=== PATIENT | male | born 1960 | race African-American/Black ===

== ENCOUNTER 2016-03-27 21:37 | Emergency (ER) | payer SELFPAY ==
[~2016-03-27 21:37] MED LIST: PRED-220 PO; SULF1TAB24 PO; TRIA15OI TP
[2016-03-27 23:18] VITALS: BP 117/70
[2016-03-28] MEDS ORDERED: HYDR-971 PO (00:26)
--- NOTE | 2016-03-28 00:27 | PHYS DOC ---
Past Medical History Past Medical History: Other Additional Past Medical Histor: "KIDNEY PROBLEM", EMPHYSEMA Past Surgical History: Other Additional Past Surgical Histo: RIGHT LOWER LOBECTOMY. Smoking: Less than 1pk/day Alcohol Use: Occasionally Drug Use: None Adult General Chief Complaint Chief Complaint: HAND PROBLEM HPI HPI Patient is a 55 year old male who presents with right hand pain after falling 11 days ago. He reports that his hip gave out on him, causing his fall. This apparently happens occasionally. He usually uses a cane for assistance with walking but was pushing a baby stroller at the time of his fall. He has tingling in the fingers, especially in the 4th and 5th digits. He denies any other injury with the fall. He sees a PCP at the [facility]. Review of Systems Review of Systems Constitutional: Denies fever or chills. [] Musculoskeletal: Denies back pain. Reports right hand pain and swelling. Integument: Denies rash or skin lesions. Reports right hand abrasions. Neurologic: Denies headache, focal weakness. Reports tingling in the right 4th & 5th fingers. Allergies Allergies Allergies Coded Allergies Type Severity Reaction Last Updated Verified ibuprofen Allergy Severe "BAD KIDNEYS" 09/21/15 Yes Physical Exam Physical Exam Constitutional: Well developed, well nourished, no acute distress, non-toxic appearance. [] HENT: Normocephalic, atraumatic, oropharynx moist. [] Eyes: PERRLA, EOMI, conjunctiva normal, no discharge. [] Skin: Warm, dry, no erythema, no rash. Healing abrasions to the right 5th finger and right hand dorsum without surrounding erythema or induration to suggest infection. Extremities: Right hand 4th and 5th metacarpal tenderness, ROM decreased due to pain and swelling, mild right hand edema. 2+ radial and ulnar pulses. Less than 2 second capillary refill distally in the fingers. Light touch sensation intact distally in the fingers. Neurologic: Alert and oriented X 3, normal motor function, normal sensory function, no focal deficits noted. [] Psychologic: Affect normal, judgement normal, mood normal. [] Current Patient Data Vital Signs Vital Signs Date Time Temp Pulse Resp B/P Pulse Ox O2 Delivery O2 Flow Rate FiO2 03/27/16 23:18 98.6 74 16 96 Room Air 98.6 EKG EKG [] Radiology/Procedures Radiology/Procedures Xrays of the right hand and wrist show a non-displaced fracture of the 5th metacarpal. Course & Med Decision Making Course & Med Decision Making Pertinent Labs and Imaging studies reviewed. (See chart for details) The patient presents with right hand pain after fall 11 days ago. On exam, he is neurovascularly intact without evidence of compartment syndrome. Xray shows a non-displaced fracture of the 5th metacarpal. An Orthoglass ulnar gutter splint was applied by ED RN. On examination after splint application, he remains neurovascularly intact without evidence of compartment syndrome. He is discharged home with prescription for [place]. He is given contact information for orthopedics for follow up. Return precautions were discussed. He verbalizes understanding and agrees with plan. Dragon Disclaimer Dragon Disclaimer This electronic medical record was generated, in whole or in part, using a voice recognition dictation system. Departure Departure Impression: Primary Impression: Metacarpal bone fracture Disposition: 01 HOME, SELF-CARE Condition: STABLE Referrals: SARAH RODRIGUEZ MD Patient Instructions: Hand Fracture, Metacarpals, [id number], Splint Care, [id number] Additional Instructions: Your xray shows a break in the 5th metacarpal, or the side of your hand. You were placed in a splint. Please keep the splint in place and keep it dry until you follow up with the orthopedic doctor. Please follow up with the orthopedic doctor listed below. Please take the prescribed pain medication as directed. Do not drive or operate heavy machinery while taking pain medication. Return to the emergency department if you have numbness in the fingers or cold fingers, or any new or concerning symptoms. Scripts Hydrocodone/Apap 5-325 ([place] 5-325 Tablet)1 Each Tablet1 Tab PO PRN Q6HRS PRN PAIN #20 TAB Prov:NURYS SETHI 03/28/16 Problem Qualifiers Primary Impression: Metacarpal bone fracture Encounter type: initial encounter Metacarpal bone: fifth Fracture type: closed Metacarpal location: base Fracture alignment: nondisplaced Laterality: right Qualified Code: S62.346A - Nondisplaced fracture of base of fifth metacarpal bone, right hand, initial encounter for closed fracture NURYS SETHI Mar 28, 2016 00:27
--- NOTE | 2016-03-28 07:29 | RAD ---
Right hand, 3 views, 03/27/2016: History: Fall, pain There is a fracture of the proximal aspect of the fifth metacarpal. A fracture line appears to involve the fifth CMC articulation. The major fracture fragments are nondisplaced. There is underlying deformity of the distal aspect of the fifth metacarpal compatible with an old healed fracture. No other recent fracture or dislocation is evident. A tiny radiopaque foreign body in the soft tissues along the dorsal aspect of the middle phalanx of the middle finger is probably old. Right wrist, 3 views, 03/27/2016: No additional fracture or dislocation is evident. IMPRESSION: Recent fracture of the proximal fifth metacarpal superimposed upon an old healed fifth metacarpal fracture.
== END 2016-03-28 00:42 | disposition home or self-care (01) ==
LOC: ER 21:37
DX: S62.396A Other fracture of fifth metacarpal bone, right hand, initial encounter for closed fracture (principal); J43.9 Emphysema, unspecified; F17.200 Nicotine dependence, unspecified, uncomplicated; Z88.8 Allergy status to other drugs, medicaments and biological substances; W19.XXXA Unspecified fall, initial encounter; Y93.89 Activity, other specified; Y92.89 Other specified places as the place of occurrence of the external cause; Y99.8 Other external cause status
CPT/HCPCS: 29125; 73110; 73130; 99284-25

== ENCOUNTER 2016-04-05 22:21 | Emergency (ER) | payer SELFPAY ==
[~2016-04-05] VITALS: Ht 180.3 cm; Wt 72.6 kg
[~2016-04-05 22:21] MED LIST changes: +HYDR-971 PO
[2016-04-05] MEDS ORDERED: HYDROCODONE/APAP 5/325MG TABLET. PO ONE (23:00)
[2016-04-05 23:01] LABS: BASO % 0 % (0-3); EOS % 4 % (0-3); HEMATOCRIT 39.7 % (39.0-53.0); HEMOGLOBIN 13.5 g/dL (13.0-17.5); LYMPH # 1.6 x10^3/uL (1.0-4.8); LYMPH % 55 % (24-48); MEAN CORPUSCULAR HEMOGLOBIN 31 pg (25-35); MEAN CORPUSCULAR HGB CONC 34 g/dL (31-37); MEAN CORPUSCULAR VOLUME 92 fL (79-100); MONO % 9 % (0-9); NEUT % 32 % (31-73); PLATELET COUNT 166 x10^3/uL (140-400); RED BLOOD COUNT 4.32 x10^6/uL (4.30-5.70); RED CELL DISTRIBUTION WIDTH 13.5 % (11.5-14.5)
[2016-04-05 23:15] LABS: CALCIUM 9.1 mg/dL (8.5-10.1); CREATININE 1.1 mg/dL (0.7-1.3); GFR 84.1; POTASSIUM 3.5 mmol/L (3.5-5.1)
[2016-04-05] MEDS ORDERED: IOHEXOL 300 MG/ML 75 ML VIAL IV ONE (23:15)
[2016-04-05] MEDS ORDERED: CONTRAST GIVEN MC PRN (23:15)
[2016-04-05 23:18] LABS: POTASSIUM ISTAT 3.5 mmol/L (3.5-5.0)
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
--- NOTE | 2016-04-05 23:57 | RAD ---
INDICATION: Trauma COMPARISON: None TECHNIQUE: Axial CT images of cervical spine with coronal and sagittal reformats processed. Axial CT images of head. One or more of the following individualized dose reduction techniques were utilized for this examination: 1. Automated exposure control; 2. Adjustment of the mA and/or kV according to patient size; 3. Use of iterative reconstruction technique. FINDINGS: Head: No midline shift. Basilar cistern patent. No gross hemorrhage or mass. Ventricles and sulci within normal limits in caliber for patients age. No gross skull fracture. Cervical: No definite acute fracture or dislocation. No perivertebral hematoma. Mild degenerative changes with osteophyte formation IMPRESSION: No gross intracranial hemorrhage or mass. No definite acute fracture or dislocation of the cervical spine. Electronically signed by: Lan Ricci (Apr 05, 2016 23:55:38)
--- NOTE | 2016-04-06 00:12 | RAD ---
INDICATION: Trauma COMPARISON: None TECHNIQUE: Axial CT images obtained through the chest, abdomen and pelvis. Reformations were processed of thoracic and lumbar spine Intravenous contrast was utilized. One or more of the following individualized dose reduction techniques were utilized for this examination: 1. Automated exposure control; 2. Adjustment of the mA and/or kV according to patient size; 3. Use of iterative reconstruction technique. FINDINGS: Chest: Thoracic aorta not grossly aneurysmal. No focal airspace consolidation. No pneumothorax. No gross mediastinal mass. Abdomen/Pelvis: Abdominal aorta not aneurysmal. Moderate calcific atherosclerosis. No intrahepatic bile duct dilation. No peripancreatic edema. Spleen unremarkable. No hydronephrosis. No definite evidence of small bowel obstruction. Bladder unremarkable within limits of CT. Thoracic spine: No definite acute fracture or dislocation. Lumbar spine: No definite acute fracture dislocation IMPRESSION: No definite solid organ or vascular injury. No definite thoracic or lumbar spine fracture. There are multiple blebs within the lungs. Correlate for possible causes such as early emphysema. Sub 4 millimeter right upper lung pulmonary nodule. Follow-up could be obtained in 1 year to ensure no growth. Electronically signed by: Lan Ricci (Apr 06, 2016 00:10:40)
[2016-04-06] MEDS ORDERED: HYDR-971 PO (00:38)
[2016-04-06 01:11] VITALS: BP 104/68
--- NOTE | 2016-04-06 07:57 | RAD ---
Right hand, 3 views, 04/05/2016: History: Injury There is deformity of the fifth metacarpal this has the appearance of an old healed fracture. No definite acute fracture line is seen. No other fracture or dislocation is evident. A small radiopaque foreign body is noted in the soft tissues along the dorsal aspect of the middle phalanx of the middle finger, of indeterminate age. Clinical correlation is suggested. IMPRESSION: Right fifth metacarpal deformity which appears to be old.
== END 2016-04-06 01:20 | disposition home or self-care (01) ==
LOC: MERGE 22:21 → ER 22:21
DX: S62.306A Unspecified fracture of fifth metacarpal bone, right hand, initial encounter for closed fracture (principal); M54.6 Pain in thoracic spine; M25.552 Pain in left hip; F32.9 Major depressive disorder, single episode, unspecified; G47.00 Insomnia, unspecified; J44.9 Chronic obstructive pulmonary disease, unspecified; V09.9XXA Pedestrian injured in unspecified transport accident, initial encounter; Y93.89 Activity, other specified; Y92.89 Other specified places as the place of occurrence of the external cause; Y99.8 Other external cause status
CPT/HCPCS: 29125; 36415; 70450; 71260; 72125; 73130; 74177; 80047; 80048; 84484; 85027; 99285; Q9967

== ENCOUNTER 2018-03-12 13:45 | Emergency (ER) | payer SELFPAY ==
[~2018-03-12] VITALS: Ht 180.3 cm; Wt 72.6 kg
[~2018-03-12 13:45] MED LIST changes: +HYDR-3164 PO; -HYDR-971 PO
[2018-03-12 13:56] VITALS: BP 124/70
[2018-03-12] MEDS ORDERED: ALBUTEROL SULFATE 2.5 MG/3 ML NEBU. NEB ONE (14:15)
[2018-03-12] MEDS ORDERED: predniSONE 10 MG TABLET PO ONE (14:15)
--- NOTE | 2018-03-12 14:24 | RAD ---
PORTABLE CHEST 1V History: Right side chest pain Comparison: There is no previous chest radiograph available Findings: AP portable view of the chest is submitted. There is probable small right pleural effusion. No pneumothorax is identified. There is no lobar consolidation. Heart size is considered within normal limits. Impression: 1. There is probable small right pleural effusion. Electronically signed by: Everette Joaquin MD (03/12/2018 2:19 PM) [id number]
[2018-03-12] MEDS ORDERED: PRED50TA PO (14:30)
[2018-03-12] MEDS ORDERED: DOXY100C2 PO (14:30)
[2018-03-12] MEDS ORDERED: ALBU2.5V8 INH (14:30)
[2018-03-12] MEDS ORDERED: BECL10.62 IH (14:51)
--- NOTE | 2018-03-12 15:06 | PHYS DOC ---
Past Medical History Past Medical History: COPD, Depression, Renal Disease Additional Past Medical Histor: INSOMNIA, RIGHT HAND FX Past Surgical History: No Surgical History Additional Past Surgical Histo: RIGHT LOWER LOBECTOMY. Alcohol Use: Occasionally Drug Use: None Adult General Chief Complaint Chief Complaint: COUGH [facility] HPI Patient is a 57 year old male p/w cough productive of yellow sputum for the last 2 weeks slowly worsening with time mild shortness of breath right out of his Qvar and albuterol. Review of Systems Review of Systems Constitutional:had fever at beginning none now Eyes: Denies change in visual acuity, redness, or eye pain [] HENT: Den Respiratory: Cardiovascular: No additional information not addressed in HPI [] GI: Denies abdominal pain, nausea, vomiting, bloody stools or diarrhea [] : Denies dysuria or hematuria [] Musculoskeletal: Denies back pain or joint pain [] Integument: Denies rash or skin lesions [] Neurologic: Denies headache, focal weakness or sensory changes [] All other systems were reviewed and found to be within normal limits, except as documented in this note. Current Medications Current Medications Current Medications Medications (Trade) Dose Ordered Sig/Chavo Start Time Stop Time Status Last Admin Dose Admin Albuterol Sulfate (Ventolin Neb Soln) 2.5 mg 1X ONCE 03/12/18 14:15 03/12/18 14:16 DC 03/12/18 14:23 2.5 MG Prednisone (Prednisone) 50 mg 1X ONCE 03/12/18 14:15 03/12/18 14:16 DC 03/12/18 14:16 50 MG Allergies Allergies Allergies Coded Allergies Type Severity Reaction Last Updated Verified ibuprofen Adverse Reaction Severe "BAD KIDNEYS" 03/12/18 Yes Physical Exam Physical Exam Constitutional: Well developed, well nourished, no acute distress, non-toxic appearance. [] HENT: Normocephalic, atraumatic, bilateral external ears normal, oropharynx moist, no oral exudates, nose normal. [] Eyes: PERRLA, EOMI, conjunctiva normal, no discharge. [] Neck: Normal range of motion, no tenderness, supple, no stridor. [] Cardiovascular:Heart rate regular rhythm, no murmur [] Lungs & Thorax: faint wheezing no resp distress Abdomen: Bowel sounds normal, soft, no tenderness, no masses, no pulsatile masses. [] Skin: Warm, dry, no erythema, no rash. [] Back: No tenderness, no CVA tenderness. [] Extremities: No tenderness, no cyanosis, no clubbing, ROM intact, no edema. [] Neurologic: Alert and oriented X 3, normal motor function, normal sensory function, no focal deficits noted. [] Psychologic: Affect normal, judgement normal, mood normal. [] Current Patient Data Vital Signs Vital Signs Date Time Temp Pulse Resp B/P (MAP) Pulse Ox O2 Delivery O2 Flow Rate FiO2 03/12/18 14:25 99 Room Air 03/12/18 13:56 97.8 86 18 124/70 (88) 97.8 EKG EKG [] Radiology/Procedures Radiology/Procedures [] Impressions: Impression: 1. There is probable small right pleural effusion. Electronically signed by: Ivon Vega MD (03/12/2018 2:19 PM) [id number] DICTATED and SIGNED BY: IVON VEGA MD DATE: 03/12/18 1418 Course & Med Decision Making Course & Med Decision Making Pertinent Labs and Imaging studies reviewed. (See chart for details) 57-year-old male with a history of COPD presenting with 3 weeks of cough productive of some yellow sputum as well as some mild shortness of breath out of inhalers likely mild COPD exacerbation he is moving good air he is well- appearing his saturation is normal felt better after nebs refilled meds. [] Dragon Disclaimer Dragon Disclaimer This electronic medical record was generated, in whole or in part, using a voice recognition dictation system. Departure Departure Impression: Primary Impression: COPD exacerbation Disposition: 01 HOME, SELF-CARE Condition: STABLE Patient Instructions: Bronchitis, [id number] Scripts Beclomethasone Dipropionate (Qvar Redihaler) 10.6 Gm Hfa.aeroba 10.6 GM IH BID, #1 INHALER Prov: JASMEET LAL MD 03/12/18 Albuterol Sulfate (Proair Hfa) 8.5 Gm Hfa.aer.ad 1 PUFF INH PRN Q6HRS PRN for SHORTNESS OF BREATH, #1 INHALER Prov: JASMEET LAL MD 03/12/18 Doxycycline Hyclate (DOXYCYCLINE HYCLATE) 100 Mg Capsule 1 CAP PO BID, #14 CAP Prov: JASMEET LAL MD 03/12/18 Prednisone (PREDNISONE) 50 Mg Tablet 1 TAB PO DAILY, #5 TAB Prov: JASMEET LAL MD 03/12/18 JASMEET LAL MD Mar 12, 2018 15:06
== END 2018-03-12 15:03 | disposition home or self-care (01) ==
LOC: ER 13:45
DX: J44.1 Chronic obstructive pulmonary disease with (acute) exacerbation (principal); F32.9 Major depressive disorder, single episode, unspecified; Z88.6 Allergy status to analgesic agent
CPT/HCPCS: 71045; 94640; 99283; J7512; J7613

== ENCOUNTER 2018-04-04 13:39 | Emergency (ER) | payer OTHER ==
[~2018-04-04] VITALS: Ht 181.6 cm; Wt 72.6 kg
[~2018-04-04 13:39] MED LIST changes: +ALBU2.5V8 INH; +BECL10.62 IH; +DOXY100C2 PO; +PRED50TA PO
[2018-04-04 13:45] VITALS: BP 128/71
[2018-04-04] MEDS ORDERED: ACETAMINOPHEN 500 MG TABLET PO ONE (14:00)
--- NOTE | 2018-04-04 14:41 | RAD ---
KNEE BILAT 3V Clinical Indication: pt fell 2 weeks ago, left knee swelling, bilateral knee pain Comparison: None. Findings: Right: No acute fracture. Mineralization is normal. Mild medial compartment narrowing. Patellar enthesophytes at the tibial tubercle. Patella in anatomic position. No obvious joint effusion. No soft tissue swelling. Left: There is no significant joint effusion. Patella in anatomic position. Small enthesophyte at the tibial tubercle. No acute fracture. Mineralization is normal. Mild medial compartment narrowing. No soft tissue swelling. IMPRESSION: No acute fracture. Electronically signed by: Vikas Collado MD (04/04/2018 2:36 PM) [id number]
--- NOTE | 2018-04-04 14:59 | PHYS DOC ---
Past Medical History Past Medical History: COPD, Depression, Renal Disease Additional Past Medical Histor: INSOMNIA, RIGHT HAND FX; unknown mental illness Past Surgical History: Other Additional Past Surgical Histo: RIGHT LOWER LOBECTOMY. Alcohol Use: Occasionally Drug Use: None Adult General Chief Complaint Chief Complaint: KNEE INJURY HPI HPI Patient is a 57 year old [f__sex] who presents with [] Review of Systems Review of Systems Constitutional: Denies fever or chills [] Eyes: Denies change in visual acuity, redness, or eye pain [] HENT: Denies nasal congestion or sore throat [] Respiratory: Denies cough or shortness of breath [] Cardiovascular: No additional information not addressed in HPI [] GI: Denies abdominal pain, nausea, vomiting, bloody stools or diarrhea [] : Denies dysuria or hematuria [] Musculoskeletal: Denies back pain or joint pain [] Integument: Denies rash or skin lesions [] Neurologic: Denies headache, focal weakness or sensory changes [] Endocrine: Denies polyuria or polydipsia [] All other systems were reviewed and found to be within normal limits, except as documented in this note. Current Medications Current Medications Current Medications Medications (Trade) Dose Ordered Sig/Chavo Start Time Stop Time Status Last Admin Dose Admin Acetaminophen (Tylenol) 1,000 mg 1X ONCE 04/04/18 14:00 04/04/18 14:01 DC 04/04/18 14:11 1,000 MG Allergies Allergies Allergies Coded Allergies Type Severity Reaction Last Updated Verified ibuprofen Adverse Reaction Severe "BAD KIDNEYS" 03/12/18 Yes Physical Exam Physical Exam Constitutional: Well developed, well nourished, no acute distress, non-toxic appearance. [] HENT: Normocephalic, atraumatic, bilateral external ears normal, oropharynx moist, no oral exudates, nose normal. [] Eyes: PERRLA, EOMI, conjunctiva normal, no discharge. [] Neck: Normal range of motion, no tenderness, supple, no stridor. [] Cardiovascular:Heart rate regular rhythm, no murmur [] Lungs & Thorax: Bilateral breath sounds clear to auscultation [] Abdomen: Bowel sounds normal, soft, no tenderness, no masses, no pulsatile masses. [] Skin: Warm, dry, no erythema, no rash. [] Back: No tenderness, no CVA tenderness. [] Extremities: No tenderness, no cyanosis, no clubbing, ROM intact, no edema. [] Neurologic: Alert and oriented X 3, normal motor function, normal sensory function, no focal deficits noted. [] Psychologic: Affect normal, judgement normal, mood normal. [] Current Patient Data Vital Signs Vital Signs Date Time Temp Pulse Resp B/P (MAP) Pulse Ox O2 Delivery O2 Flow Rate FiO2 04/04/18 13:45 97.4 82 16 128/71 (90) 98 Room Air 97.4 EKG EKG [] Radiology/Procedures Radiology/Procedures [] Course & Med Decision Making Course & Med Decision Making Pertinent Labs and Imaging studies reviewed. (See chart for details) [] Dragon Disclaimer Dragon Disclaimer This electronic medical record was generated, in whole or in part, using a voice recognition dictation system. Departure Departure Impression: Primary Impression: Contusion of knee, left Additional Impression: Contusion of knee, right Disposition: HOME, SELF-CARE Condition: STABLE Referrals: NO PCP (PCP) Patient Instructions: Contusion Additional Instructions: You may Tylenol for pain. RICE the extremities. Follow up with your health care clinic for further evaluation if not improving. Problem Qualifiers LETA FRIEND APRN Apr 04, 2018 14:59
== END 2018-04-04 15:10 | disposition home or self-care (01) ==
LOC: ER 13:39
DX: S80.02XA Contusion of left knee, initial encounter (principal); S80.01XA Contusion of right knee, initial encounter; J44.9 Chronic obstructive pulmonary disease, unspecified; F32.9 Major depressive disorder, single episode, unspecified; Z88.6 Allergy status to analgesic agent; W00.0XXA Fall on same level due to ice and snow, initial encounter; Y93.89 Activity, other specified; Y92.480 Sidewalk as the place of occurrence of the external cause; Y99.8 Other external cause status
CPT/HCPCS: 73562; 99283